=== PATIENT | female | born 1955 | race Caucasian/White ===

== ENCOUNTER 2024-06-20 13:12 | Emergency (ER) | payer MEDICARE, SELFPAY ==
[2024-06-20 13:17] VITALS: BP 128/78
[2024-06-20 14:47] VITALS: BMI 18.7
--- NOTE | 2024-06-20 15:09 | ED.GENMED ---
History of Present Illness
General
Chief Complaint: DVT/Possible Blood Clot
Source: patient
Time Seen by Provider: 06/20/24 14:29
History of Present Illness
History of Present Illness:
69-year-old female with past medical history of peripheral arterial and vascular disease, emphysema, previous lung cancer presenting to the emergency department for evaluation after she noticed some bruising to the left anterior lower leg yesterday,
persisted today which prompted her to come to the ER for evaluation for possible DVT. Patient is currently visiting and staying with her friend, lives in [place] normally, and follows with a vascular group there. She is scheduled to see them as
part of her annual follow-up in October. She notes that she has pain in the entirety of her left leg but that this pain is there chronically and is not any different today. Patient denies any trauma, focal weakness or numbness, increased pallor
or any temperature changes. She notes that both legs always feel cold to the touch. She also notes that there is some chronic vascular skin changes to both feet which are unchanged today.
Past History
Past History
ED Past Medical History: Cancer, COPD, GERD, Psychiatric and Other (DVT)
ED Past Surgical History: Gynecological and Orthopedic
Social History
Tobacco: Former smoker
Alcohol: None
Drug: None
Personal: Single
Living: alone
Review of Systems
Review of Systems
All Other Systems: ROS reviewed and negative except as documented in HPI and ROS
Phy Exam
Physical Exam
Physical Exam:
GENERAL: Alert , in no apparent distress
EYE: conjunctiva clear
NECK: Supple
ENT: mmm.
CARDIAC: Regular rate and rhythm
LUNGS: Clear breath sounds bilaterally, no acute respiratory distress, no wheezes/rales/rhonchi
NEUROLOGICAL: Alert and oriented
SKIN: Cool to the touch to bilateral lower extremities, skin intact. There is small area of ecchymosis to the anterior ankle without any pain. Cap refill is approximately 2 seconds
MUSCULOSKELETAL: There are multiple areas of spider veins to dorsal distal metatarsals on both feet. Sensation is grossly intact to light touch. I was able to palpate a faint tibial pulse bilateral. Unable to palpate pedal pulses but was able to
find weaker pedal pulses with Doppler. Patient reports that this is normal for her
PSYCH: Normal and appropriate interaction.
Scores
Heart Failure Risk
Heart Failure Risk Score: Not Applicable
Heart Score for Chest Pain Patients
STEMI patient?: Not applicable
Withdrawal Assessment of Alcohol
Withdrawal Assessment Completed?: Not applicable
Course
Orders/Labs/Results
Orders:
Orders
06/20/24 14:29
US Periph Venous LOWER Ext LT Urgent
Comment:
Reason For Exam: edema, ecchymosis, hx of DVT
06/20/24 15:05
Basic Metabolic Panel Urgent
Complete Blood Count/With Diff Urgent
Abnormal Lab Results
06/20/24
15:05
WBC 3.8 L 10^3/uL
(4.8-10.8)
RBC 3.94 L 10^6/uL
(4.20-5.40)
Hct 36.2 L %
(37.0-47.0)
MCH 31.7 H pg
(27.0-31.0)
Sodium 133 L mmol/L
(135-145)
Creatinine 0.5 L mg/dL
(0.6-1.0)
06/20/24 15:05
06/20/24 15:05
Vital Signs
Initial and Last Documented VS:
Initial Vital Signs
Temp Pulse Resp BP Pulse Ox
98.1 F 68 18 128/78 98
06/20/24 13:17 06/20/24 13:17 06/20/24 13:17 06/20/24 13:17 06/20/24 13:17
Last Documented Vital Signs
Temp Pulse Resp BP Pulse Ox
98.1 F 68 18 128/78 98
06/20/24 13:17 06/20/24 13:17 06/20/24 13:17 06/20/24 13:17 06/20/24 13:17
MDM/Problems Addressed
Differential Diagnosis Includes:
Peripheral vascular disease, peripheral arterial disease, DVT, less concern for an acute ischemic limb
MDM/Problems Addressed:
69-year-old female presenting to the emergency department for evaluation after she noticed atraumatic ecchymosis to the anterior left lower leg yesterday, continued today. Patient without any increased pain than her usual. Denies any paresthesias
or numbness. No color changes outside of the ecchymosis or temperature changes. Less concern for an acute arterial occlusion but I do suspect there is a significant component for chronic peripheral vascular and peripheral arterial disease. Will
obtain ultrasound to rule out DVT. Labs ordered to evaluate patient's platelets and hemoglobin
Chronic conditions affecting care: PVD
Acute Exacerbation and/or Progression of Chronic Illness: PVD
*Radiology
Radiology exam reviewed: radiology read reviewed
*Pulse Oximetry
Patient hypoxic: no
*Critical Care Note
Total Time (30-74mins, 75-104mins- exclusive of procedures): Not Applicable
Data Reviewed
Review of Other/Old Records Reveals: Labs and Records
Patient Management
Escalation/DeEscalation of care consider admission/obs:
Patient ultrasound is negative for DVT. I advise she contact her vascular surgery team when she gets back to [place] so she can have close follow-up. Aware of return precautions to the emergency department.
ED Attending Note
-
Portions of this chart may have been created with voice recognition software.� Occasional wrong word or��sound alike� substitutions may have occurred due to the inherent limitations of voice recognition software.
Discharge Plan
Departure
Patient Disposition: Home (Routine Discharge)
Date of Disposition: 06/20/24
Time of Disposition: 16:12
Patient with high blood pressure during this ER visit?: No
Discharge Problem:
PAD (peripheral artery disease)
Instructions: Peripheral Vascular (Arterial) Disease (DC)
Prescriptions:
No Action
amoxicillin-pot clavulanate 875-125 mg tablet
1 tab PO BID Qty: 14 0RF
ciprofloxacin HCl [Cipro] 500 mg tablet
500 mg PO BID Qty: 14 0RF
metronidazole 500 mg tablet
500 mg PO BID Qty: 20 0RF
Referrals:
PRINCE WREN [Other]
Interventions
Interventions:
*General Assessment Last Done: 06/20/24 13:17
*Neglect/Abuse Screening Last Done: 06/20/24 13:17
ED- Fall Risk Assessment Last Done: 06/20/24 14:47
ED- Cardiac Assessment Last Done: 06/20/24 14:47
ED- Pulmonary Assessment Last Done: 06/20/24 14:47
ED-Skin Assessment Last Done: 06/20/24 14:47
Discharge Date and Time
Print Language: SLOVAK
[2024-06-20 15:13] LABS: % Basophils 1.6 % (0-2); % Eosinophils 2.1 % (0-6); % Lymphocytes 30.3 % (20.5-51.1); % Monocytes 8.7 % (1.7-9.3); % Neutrophils 57.3 % (42.2-75.2); Absolute Basophils 0.1 10^3/uL (0-0.2); Absolute Eosinophils 0.1 10^3/uL (0-0.7); Absolute Lymphocytes 1.2 10^3/uL (1.2-3.4); Absolute Monocytes 0.3 10^3/uL (0.1-0.6); Absolute Neutrophils 2.2 10^3/uL (1.4-6.5); Hematocrit 36.2 % (37.0-47.0); Hemoglobin 12.5 g/dL (12.0-16.0); Mean Corp Hgb Conc. 34.5 g/dL (33.0-37.0); Mean Corpuscular Hgb 31.7 pg (27.0-31.0); Mean Corpuscular Volume 91.9 fL (81.0-99.0); Mean Platelet Volume 9.7 fL (7.4-10.4); Nucleated Red Blood Cells % 0 %; Platelet Count 213 10^3/uL (130-400); Red Blood Cell Count 3.94 10^6/uL (4.20-5.40); Red Cell Dist. Width 12.6 % (11.5-14.5); White Blood Cell Count 3.8 10^3/uL (4.8-10.8)
[2024-06-20 15:26] LABS: Blood Urea Nitrogen 9 mg/dl (7-17); Calcium 9.6 mg/dl (8.4-10.2); Carbon Dioxide 27 mmol/L (22-30); Chloride 100 mmol/L (98-107); Estimated Creatinine Clearance 78 ml/min; Glucose 92 mg/dl (70-99); Potassium 4.4 mmol/L (3.5-5.1); Sodium 133 mmol/L (135-145); eGFR > 60.00
[2024-06-20 16:31] VITALS: BP 153/85
== END 2024-06-20 16:31 | disposition home or self-care (01) ==
LOC: EMR 13:12
PROVIDERS: Physician Assistant Medical; EMERGENCY PHYSICIAN Emergency Medicine
DX: S80.12XA Contusion of left lower leg, initial encounter (principal); X58.XXXA Exposure to other specified factors, initial encounter; I73.9 Peripheral vascular disease, unspecified; Z87.891 Personal history of nicotine dependence
CPT/HCPCS: 99284; 80048; 85025; 93971